=== PATIENT | male | born 1970 | race Caucasian/White ===

== ENCOUNTER 2016-03-10 10:33 | Emergency (ER) | payer OTHER ==
[2016-03-10] MEDS ORDERED: HYDROmorphONE/DILAUDID 1 MG/ML SYR IVP ONE ×2 (10:55→12:16)
--- NOTE | 2016-03-10 12:42 | MR ---
MRI of the Lumbar Spine (Without Contrast) 1125 Hours Clinical Indications: Acute low back pain from shoveling snow. Right radiculopathy. Technique: Sagittal and axial T1 and T2 and sagittal STIR MR sequences of the lumbar spine without contrast. Axial imaging from T12 through S1. Findings: Lumbar vertebral bodies are of normal heights without compression fractures. Conus medull abran appears normal and ends at T12. T12-L1: No disk herniation or stenosis. L1-L2: Mild degenerative disk disease, mild disk bulge, and moderate bilateral facet arthropathy resu lting in mild central canal stenosis without neural foraminal stenosis. L2-L3: Moderate degenerative disk disease with circumferential disk bulge and moderate bilateral face t arthropathy resulting in moderate central canal stenosis without neural foraminal stenosis. L3-L4: Moderate degenerative disk disease with a central disk herniation, protrusion, with annular te ar and moderate bilateral facet arthropathy resulting in severe central canal stenosis with complete effacement of the subarachnoid space and degenerative grade 1 retrolisthesis 3 mm. No neural foramina l stenosis. L4-L5: Moderate degenerative disk disease with endplate diskogenic changes and a central 5 mm disk he rniation, extrusion, migrating caudally with moderate bilateral facet arthropathy resulting in severe central canal stenosis with complete effacement of the subarachnoid space and mild bilateral neural foraminal stenosis. L5-S1: Moderate bilateral facet arthropathy without disk herniation or stenosis. Impressions 1. L4-L5: Severe central canal stenosis secondary to central disk herniation, extrusion, minimal retr olisthesis, and moderate bilateral facet arthropathy. 2. L3-L4: Severe central canal stenosis secondary to degenerative retrolisthesis, central disk hernia tion, and moderate bilateral facet arthropathy. 3. L2-L3: Moderate central canal stenosis secondary to degenerative disk disease with disk bulge and bilateral facet arthropathy. 4. Please see above findings at specific disk levels. Findings and recommendations discussed with Emergency Department physician, Dr. Jose C Brooke, at 1210 hours, today, March 10, 2016. Final report concurs with initial preliminary interpretation.
--- NOTE | 2016-03-10 12:45 | EDPHY ---
H & P Stated Complaint: back injury while shoveling snow today, right leg sharp shooting pain Time Seen by Provider: 03/10/16 10:43 - Personal History Current Tetanus/Diphtheria Vaccine: Yes Current Tetanus Diphtheria and Acellular Pertussis (TDAP): Yes - Medical/Surgical History Hx Asthma: No Hx Chronic Respiratory Disease: No Hx Diabetes: No Hx Cardiac Disease: Yes Hx Renal Disease: No Hx Cirrhosis: No Hx Alcoholism: No Hx HIV/AIDS: No Hx Splenectomy or Spleen Trauma: No Other PMH: pmh: ulcerative colitis,. psh: mitral valve repair 2012 - Social History Smoking Status: Never smoked Constitutional: Initial Vital Signs Temperature (C) 36.7 C 03/10/16 10:39 Heart Rate 110 H 03/10/16 10:39 Respiratory Rate 18 03/10/16 10:39 Blood Pressure 136/97 H 03/10/16 10:39 O2 Sat (%) 100 03/10/16 10:39 O2 Delivery Mode Room Air Allergies/Adverse Reactions: No Known Allergies Allergy (Unverified 03/10/16 10:37) Home Medications: Medication Instructions Recorded ASPIRIN 03/10/16 Azathioprine 03/10/16 Multi-Vitamin Daily 03/10/16 Remicade Inj 100 mg (*) 03/10/16 Medical Decision Making ED Course/Re-evaluation: CHIEF COMPLAINT: Low back pain HISTORY OF PRESENT ILLNESS: 45-year-old healthy gentleman who was shoveling snow this morning has acute severe low back pain which is causing him to have severe back spasms. He initially had some pain down his right leg but that is resolved to some extent. He denies any bowel or bladder dysfunction. He denies any prior significant back pain although he does complain of some intermittent back problems that tend to resolve spontaneously. She has never had any surgery on his back nor has he sought care for his back specifically. REVIEW OF SYSTEMS: A 10 point review of systems was performed and is negative with the exception of the elements mentioned in the history of present illness. PHYSICAL EXAM: HR, BP, O2 Sat, RR. Temp noted General Appearance: Alert, well hydrated, appropriate, and non-toxic appearing. Head: Atraumatic without scalp tenderness or obvious injury Eyes: Pupils equal, round, reactive to light and accommodation, EOMI, no trauma , no injection. Ears: Clear bilaterally, no perforation, normal landmarks Nose: Atraumatic, no rhinorrhea, clear. Throat: There is no erythema or exudates, no lesions, normal tonsils, mucus membranes moist. Neck: Supple, 2+ carotid upstroke, nontender, no lymphadenopathy. Respiratory: No retractions, no distress, no wheezes, and no accessory muscle use. Lungs are clear to auscultation bilaterally. Cardiovascular: Regular rate and rhythm, no murmurs, rubs, or gallops. Bilateral carotid, radial, dorsalis pedis, and posterior tibial pulses intact. Good capillary refill all extremities. Gastrointestinal: Abdomen is soft, nontender, non-distended, no masses, no rebound, no guarding, no peritoneal signs. Musculoskeletal: Severe low back pain. No evidence of motor dysfunction radiculopathy. Normal active ROM of all extremities, atraumatic. Neurological: Alert, appropriate, and interactive. The patient has normal DTRs and non-focal cranial nerves, motor, sensory, and cerebellar exam. Skin: No rashes, good turgor, no nodules on palpation. Past medical history: Mitral valve problems Past surgical history: Mitral valve repair 4 years ago Family history: Noncontributory Social history: , employed, does not abuse tobacco drugs or alcohol DIAGNOSTICS/PROCEDURES/CRITICAL CARE TIME: Study: MRI of the: spine without contrast Indication: acute back pain with intractable pain Results: MRI scan of the lumbar spine was obtained. The results of the study are severe stenosis from to disc herniations 1 at L3, 4 and 1 at L4-5 the 1 at L4-5 is acute. The study was read by the radiologist, Dr. Bernardo Segundo. I viewed the images myself on the PACS system. DIFFERENTIAL DIAGNOSIS: The differential diagnosis for the patient's neurologic deficits included but was not limited to peripheral causes, central causes including CVA, TIA, electrolyte abnormalities and dehydration, cardiogenic causes, atypical causes like migraine syndrome. MEDICAL DECISION MAKING: This patient has 2 levels of severe disc herniations 1 more acute than the other causing severe spinal stenosis. He does not have any motor deficits he does not have any bowel or bladder dysfunction. He does not have any radiculopathy currently but initially had some. I spoke with Dr. Abbasi from Neurosurgery who would like to treat him conservatively since he has no evidence of motor dysfunction nor does he have any evidence of cauda equina syndrome. I will start this patient on a Medrol Dosepak pain meds and he will follow up in the office he will return here if he develops any bowel or bladder function or any pain that is uncontrollable or any weakness in his legs - Data Points Laboratory Results: 03/10/16 10:51 POC Hgb 16.0 gm/dL (14.5-17.3) POC Hct 47 % (42.8-50.6) POC Sodium 146 H mEq/L (134-144) POC Potassium 3.5 mEq/L (3.3-5.0) POC Chloride 107 mEq/L (96-108) POC BUN 15 mg/dL (7-23) POC Creatinine 0.9 mg/dL (0.8-1.5) POC Glucose 79 mg/dL (70-100) Medications Given: Discontinued Medications Hydromorphone HCl (Dilaudid) 1 mg IVP EDNOW ONE Stop: 03/10/16 10:56 Last Admin: 03/10/16 11:01 Dose: 1 mg Hydromorphone HCl (Dilaudid) 1 mg IVP EDNOW ONE Stop: 03/10/16 12:17 Last Admin: 03/10/16 12:19 Dose: 1 mg Point of Care Test Results: 03/10/16 10:51 POC Sodium 146 H POC Potassium 3.5 POC Chloride 107 POC BUN 15 POC Creatinine 0.9 POC Glucose 79 Departure - Departure Disposition: Home, Routine, Self-Care Clinical Impression: Herniated lumbar intervertebral disc Condition: Good Instructions: Lumbar Disc Herniation (ED) Additional Instructions: Return here immediately if any of the following occur: 1. Any difficulty with bowel or bladder function or any leaking of bladder or incontinence of stool. 2. Inability to control your pain 3. Severe pain in either of your legs or inability to utilize your legs. 4. Otherwise follow up with Dr. Abbasi take all of your steroids and user pain pills Referrals: Tip Abbasi MD [Medical Doctor] - 3-4 days, if not improved
[2016-03-10 13:53] VITALS: BP 128/94; PULSE 79; RESP 16; TEMP 98.2; O2SAT 98
== END 2016-03-10 13:52 | disposition home or self-care (01) ==
DX: M51.26 Other intervertebral disc displacement, lumbar region (principal); Z79.82 Long term (current) use of aspirin; X58.XXXA Exposure to other specified factors, initial encounter; Y93.H1 Activity, digging, shoveling and raking
CPT/HCPCS: 82947-QW; 96374; J1170

== ENCOUNTER 2017-07-03 07:54 | Emergency (ER) | payer OTHER ==
--- NOTE | 2017-07-03 08:34 | CPEKG ---
Heart Rate: 90 RR Interval: 667 P-R Interval: 164 QRSD Interval: 94 QT Interval: 364 QTC Interval: 446 P Gibbon: 17 QRS Gibbon: 74 T Wave Gibbon: 52 EKG Severity - BORDERLINE ECG - EKG Impression: SINUS RHYTHM EKG Impression: PROBABLE LEFT ATRIAL ABNORMALITY Electronically Signed By: Darlene Eden 03-Jul-2017 14:52:47
[2017-07-03 08:35] LABS: PLATELET COUNT 135 10^3/uL (150-400)
[2017-07-03] MEDS ORDERED: NS 500 ML IV ONE (08:58)
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
[2017-07-03 09:41] VITALS: BP 138/99
== END 2017-07-03 09:53 | disposition home or self-care (01) ==
LOC: EDUNIT#
DX: R42 Dizziness and giddiness (principal); E86.9 Volume depletion, unspecified; Z77.098 Contact with and (suspected) exposure to other hazardous, chiefly nonmedicinal, chemicals; Z79.82 Long term (current) use of aspirin